=== PATIENT | male | born 1945 | race Caucasian/White ===

== ENCOUNTER → 2018-01-07 | Outpatient (CLI) | payer MEDICARE ==
[~2018-01-07] MED LIST: Azor 5-20 MG T1 EACH PO; OXYC1TAB11 PO
[2018-01-07 19:56] LABS: BASOPHILS ABSOLUTE AUTO 0.02 K/mm3 (0.00-0.23); BASOPHILS PERCENT AUTO 0 % (0-2); EOSINOPHILS ABSOLUTE AUTO 0.24 K/mm3 (0.00-0.68); EOSINOPHILS PERCENT AUTO 4 % (0-6); Hematocrit 39.9 % (37.0-53.0); Hemoglobin 13.3 g/dL (13.5-17.5); IMMATURE GRAN ABSOLUTE AUTO 0.03 K/mm3 (0.00-0.10); IMMATURE GRAN PERCENT AUTO 0 % (0-1); LYMPHOCYTES ABSOLUTE AUTO 2.21 K/mm3 (0.84-5.20); LYMPHOCYTES PERCENT AUTO 33 % (21-46); MONOCYTES PERCENT AUTO 7 % (4-13); Mean Corpuscular HGB 30.5 pg (26.0-34.0); Mean Corpuscular HGB Conc 33.3 g/dL (31.5-36.5); Mean Corpuscular Volume 92 fL (80-100); Mean Platelet Volume 10.4 fL (9.1-12.4); NEUTROPHILS PERCENT AUTO 56 % (41-73); Platelet Count 195 K/mm3 (150-400); RDW Standard Deviation 43.1 fL (35.1-46.3); Red Blood Cell Count 4.36 M/mm3 (4.30-5.90)
[2018-01-07 20:23] LABS: Alanine Aminotransfer (ALT/SGP 20 U/L (12-78); Albumin, Blood 4.3 g/dL (3.4-5.0); Albumin/Globulin Ratio 1.2 (0.8-1.8); Alk Phos 76 U/L (50-136); Anion Gap 5 mmol/L (6-16); Aspartate Aminotrans (AST/SGOT 16 U/L (12-37); Bilirubin, Total 0.3 mg/dL (0.1-1.0); Blood Urea Nitrogen 41 mg/dL (8-24); Bun/Creatinine Ratio 34.5 (12.0-20.0); CHOL/HDL RATIO 2.7; CO2, Blood 28 mmol/L (21-32); Calcium, Blood 9.4 mg/dL (8.5-10.1); Chloride, Blood 104 mmol/L (98-108); Cholesterol 190 mg/dL (50-200); Creatinine, Blood 1.19 mg/dL (0.60-1.20); Globulin, Blood 3.6 g/dL (2.2-4.0); Glomerular Filtration Rate >60 (60-); Glucose, Blood 93 mg/dL (70-99); HDL Cholesterol 70 mg/dL (>39); LDL/HDL RATIO 1.5; Low Density Lipoprotein Chol 104 mg/dL (0-110); Sodium, Blood 137 mmol/L (136-145); Total Protein, Blood 7.9 g/dL (6.4-8.2); Triglycerides 78 mg/dL (30-160); Very Low Density Lipoprot Chol 15 mg/dL (6-32)
== END | disposition home or self-care (01) ==
LOC: LAB 09:53 → LAB SHORT 09:53
PROVIDERS: Family Medicine
DX: E78.5 Hyperlipidemia, unspecified (principal); E55.9 Vitamin D deficiency, unspecified; I10 Essential (primary) hypertension
CPT/HCPCS: 80053; 80061; 82306; 85025

== ENCOUNTER → 2018-05-28 | Outpatient (CLI) | payer MEDICARE, OTHER ==
[2018-05-28 21:04] LABS: BASOPHILS ABSOLUTE AUTO 0.01 K/mm3 (0.00-0.23); BASOPHILS PERCENT AUTO 0 % (0-2); EOSINOPHILS ABSOLUTE AUTO 0.23 K/mm3 (0.00-0.68); EOSINOPHILS PERCENT AUTO 3 % (0-6); Hematocrit 41.8 % (37.0-53.0); Hemoglobin 13.5 g/dL (13.5-17.5); IMMATURE GRAN ABSOLUTE AUTO 0.02 K/mm3 (0.00-0.10); IMMATURE GRAN PERCENT AUTO 0 % (0-1); LYMPHOCYTES ABSOLUTE AUTO 2.18 K/mm3 (0.84-5.20); LYMPHOCYTES PERCENT AUTO 27 % (21-46); MONOCYTES ABSOLUTE AUTO 0.61 K/mm3 (0.16-1.47); MONOCYTES PERCENT AUTO 8 % (4-13); Mean Corpuscular HGB 29.9 pg (26.0-34.0); Mean Corpuscular HGB Conc 32.3 g/dL (31.5-36.5); Mean Corpuscular Volume 93 fL (80-100); Mean Platelet Volume 10.5 fL (9.1-12.4); NEUTROPHILS ABSOLUTE AUTO 5.11 K/mm3 (1.96-9.15); NEUTROPHILS PERCENT AUTO 63 % (41-73); Platelet Count 177 K/mm3 (150-400); RDW Coefficient Variation 12.7 % (11.7-14.2); RDW Standard Deviation 43.1 fL (35.1-46.3); Red Blood Cell Count 4.52 M/mm3 (4.30-5.90); White Blood Cell Count 8.16 K/mm3 (4.00-11.30)
[2018-05-29 08:55] LABS: Anion Gap 6 mmol/L (6-16); Blood Urea Nitrogen 32 mg/dL (8-24); Bun/Creatinine Ratio 27.1 (12.0-20.0); CO2, Blood 29 mmol/L (21-32); Calcium, Blood 9.4 mg/dL (8.5-10.1); Chloride, Blood 102 mmol/L (98-108); Creatinine, Blood 1.18 mg/dL (0.60-1.20); Glomerular Filtration Rate >60 (60-); Glucose, Blood 101 mg/dL (70-99); Potassium, Blood 4.6 mmol/L (3.5-5.5); Sodium, Blood 137 mmol/L (136-145)
[2018-05-29 08:56] LABS: Alanine Aminotransfer (ALT/SGP 24 U/L (12-78); Albumin, Blood 4.4 g/dL (3.4-5.0); Albumin/Globulin Ratio 1.2 (0.8-1.8); Alk Phos 80 U/L (50-136); Aspartate Aminotrans (AST/SGOT 18 U/L (12-37); Bilirubin, Total 0.6 mg/dL (0.1-1.0); Globulin, Blood 3.7 g/dL (2.2-4.0); Total Protein, Blood 8.1 g/dL (6.4-8.2)
== END | disposition home or self-care (01) ==
LOC: LAB SHORT 15:52 → LAB 15:52
PROVIDERS: Family Medicine
DX: E78.5 Hyperlipidemia, unspecified (principal); I10 Essential (primary) hypertension
CPT/HCPCS: 80053; 85025; 86430

== ENCOUNTER 2020-02-07 13:15 | Emergency (ER) | payer MEDICARE, OTHER ==
[~2020-02-07] VITALS: Ht 177.8 cm; Wt 81.7 kg
[2020-02-07] MEDS ORDERED: Norco 10-325 T1 EACH PO (15:31)
== END 2020-02-07 18:33 | disposition home or self-care (01) ==
LOC: ER 13:15
DX: S16.1XXA Strain of muscle, fascia and tendon at neck level, initial encounter (principal); S00.03XA Contusion of scalp, initial encounter; I10 Essential (primary) hypertension; Z88.5 Allergy status to narcotic agent; W22.8XXA Striking against or struck by other objects, initial encounter
CPT/HCPCS: 70450; 72125; 73030; 73562-LT; 73562-RT; 96374; 99284-25; J3010

== ENCOUNTER 2020-04-01 12:15 | Emergency (ER) | payer MEDICARE, OTHER ==
[~2020-04-01] VITALS: Ht 172.7 cm; Wt 79.4 kg
[~2020-04-01 12:15] MED LIST changes: +Norco 10-325 T1 EACH PO
[2020-04-01 12:41] LABS: BASOPHILS ABSOLUTE AUTO 0.01 K/mm3 (0.00-0.23); BASOPHILS PERCENT AUTO 0 % (0-2); EOSINOPHILS ABSOLUTE AUTO 0.12 K/mm3 (0.00-0.68); EOSINOPHILS PERCENT AUTO 2 % (0-6); Hematocrit 37.4 % (37.0-53.0); IMMATURE GRAN ABSOLUTE AUTO 0.02 K/mm3 (0.00-0.10); IMMATURE GRAN PERCENT AUTO 0 % (0-1); LYMPHOCYTES ABSOLUTE AUTO 1.73 K/mm3 (0.84-5.20); LYMPHOCYTES PERCENT AUTO 32 % (21-46); MONOCYTES ABSOLUTE AUTO 0.39 K/mm3 (0.16-1.47); MONOCYTES PERCENT AUTO 7 % (4-13); Mean Corpuscular HGB 30.1 pg (26.0-34.0); Mean Corpuscular HGB Conc 32.1 g/dL (31.5-36.5); Mean Corpuscular Volume 94 fL (80-100); Mean Platelet Volume 9.4 fL (9.1-12.4); NEUTROPHILS PERCENT AUTO 59 % (41-73); Platelet Count 184 K/mm3 (150-400); RDW Coefficient Variation 13.1 % (11.7-14.2); RDW Standard Deviation 45.1 fL (35.1-46.3); Red Blood Cell Count 3.99 M/mm3 (4.30-5.90); White Blood Cell Count 5.47 K/mm3 (4.00-11.30)
[2020-04-01 13:06] LABS: Alanine Aminotransfer (ALT/SGP 17 U/L (12-78); Albumin, Blood 3.8 g/dL (3.4-5.0); Albumin/Globulin Ratio 1.1 (0.8-1.8); Alk Phos 64 U/L (50-136); Anion Gap 2 mmol/L (6-16); Aspartate Aminotrans (AST/SGOT 11 U/L (12-37); Bilirubin, Total 0.6 mg/dL (0.1-1.0); Blood Urea Nitrogen 22 mg/dL (8-24); Bun/Creatinine Ratio 17.6 (12.0-20.0); CO2, Blood 31 mmol/L (21-32); Calcium, Blood 9.3 mg/dL (8.5-10.1); Chloride, Blood 106 mmol/L (98-108); Creatinine, Blood 1.25 mg/dL (0.60-1.20); Globulin, Blood 3.4 g/dL (2.2-4.0); Glomerular Filtration Rate 60 (60-); Glucose, Blood 95 mg/dL (70-99); Potassium, Blood 4.1 mmol/L (3.5-5.5); Sodium, Blood 139 mmol/L (136-145); Total Protein, Blood 7.2 g/dL (6.4-8.2); Troponin I <0.015 ng/mL (0.000-0.040)
[2020-04-01] MEDS ORDERED: CARVEDILOL3.125 MG PO (13:13)
[2020-04-01] MEDS ORDERED: TRIDERM28.4 GM TOP (13:14)
[2020-04-01] MEDS ORDERED: TADALAFIL5 M1 PO (13:14)
[2020-04-01] MEDS ORDERED: LOSA25 PO (13:14)
[2020-04-01] MEDS ORDERED: TRAZ50 PO (16:43)
[2020-04-01] MEDS ORDERED: DEXA4 PO (16:43)
[2020-04-01] MEDS ORDERED: OXYC10TA19 PO (16:43)
== END 2020-04-01 18:41 | disposition home or self-care (01) ==
LOC: ER 12:15
PROVIDERS: Emergency Medicine
DX: M48.02 Spinal stenosis, cervical region (principal); G89.29 Other chronic pain; Z88.5 Allergy status to narcotic agent; Z79.899 Other long term (current) drug therapy; I10 Essential (primary) hypertension
CPT/HCPCS: 71046; 80053; 83880; 84484; 85025; 93005; 93010; 96361; 96374; 96375; 96376; 99285-25; J2405; J2930; J3010; J7030; U0002

== ENCOUNTER 2020-05-03 05:52 | Day surgery (SDC) | payer MEDICARE, OTHER ==
[~2020-05-03] VITALS: Ht 167.6 cm; Wt 80.0 kg
[~2020-05-03 05:52] MED LIST changes: +ATOR20 PO; +Aspir 8181 MG PO; +CARVEDILOL3.125 MG PO; +DEXA4 PO; +DIAZ10 PO; +FURO40 PO; +LASIX40 MG PO; +LOSA25 PO; +OXYC10TA19 PO; +TADALAFIL5 M1 PO; +TRAZ50 PO; +TRIDERM28.4 GM TOP
--- NOTE | 2020-05-03 09:32 | NUR ---
TYLENOL#3 2 PO GIVEN FOR 910 LEFT HIP PAIN
--- NOTE | 2020-05-03 10:13 | NUR ---
OXYCODONE 10 MG PO GIVEN FOR 9/10 LEFT HIP PAIN.
--- NOTE | 2020-05-03 12:30 | NUR ---
AMBULATED IN HELLEN. TOLERATED FAIR. DRESSING HAS SMALL AMOUNT OF SCAN BLOOD AT SITE.
--- NOTE | 2020-05-03 12:59 | NUR ---
DISCHARGE INSTRUCTIONS GIVEN WITH VERBAL AND WRITTEN UNDERSTANDING. [facility]GE INSTRUCTIONS WELL.
--- NOTE | 2020-05-03 13:29 | NUR ---
IV REMOVED INTACT. 2X2 MANUAL PRESSURE AND COBAN APPLIED. DRESSED FOR DISCHARGE. [facility] CALLED AT 12:50. INSTRUCTIONS WITH PATIENT.
[2020-05-16] MEDS ORDERED: FURO40 PO (06:41)
[2020-05-16] MEDS ORDERED: LOSA25 PO (06:42)
== END 2020-05-03 13:30 | disposition home or self-care (01) ==
LOC: MHTC 05:52
PROC: B201YZZ Plain Radiography of Multiple Coronary Arteries using Other Contrast (ICD-10-PCS; principal; 2020-05-03)
PROC: 4A023N7 Measurement of Cardiac Sampling and Pressure, Left Heart, Percutaneous Approach (ICD-10-PCS; principal; 2020-05-03)
DX: I25.10 Atherosclerotic heart disease of native coronary artery without angina pectoris (principal); Z88.5 Allergy status to narcotic agent; Z87.891 Personal history of nicotine dependence; I10 Essential (primary) hypertension; E78.5 Hyperlipidemia, unspecified; F32.9 Major depressive disorder, single episode, unspecified; Z79.899 Other long term (current) drug therapy; Z79.82 Long term (current) use of aspirin; Z88.6 Allergy status to analgesic agent
CPT/HCPCS: 93458; 99152; 99153; C1769; C1894; J0690; J1644; J2250; J3010; J7030; J7040; Q9967

== ENCOUNTER 2020-05-17 03:19 | Emergency (ER) | payer MEDICARE, OTHER ==
[~2020-05-17] VITALS: Ht 180.3 cm; Wt 79.4 kg
[2020-05-17 04:05] LABS: Source, Urine Catheter
[2020-05-17 04:11] LABS: Appearance, Urine Clear (Clear); Bilirubin, Urine Neg (Neg); Blood, Urine 3+ (Neg); Color, Urine Amber (P-Yellow); Glucose Qualitative, Urine Neg (Neg); Ketones, Urine 2+ (Neg); Leukocyte Esterase, Urine Neg (Neg); Nitrite, Urine Neg (Neg); Protein, Urine Neg (Neg); Urobilinogen, Urine 1+ (Normal)
[2020-05-17 04:51] LABS: Bacteria Few /hpf; Squamous Epithelial Cells Rare /hpf (Few); White Blood Cells, Urine 0-2 /hpf (0-5)
== END 2020-05-17 05:32 | disposition home or self-care (01) ==
LOC: ER 03:19
PROVIDERS: Emergency Medicine
DX: R35.0 Frequency of micturition (principal); R35.8 Other polyuria; R60.0 Localized edema; Z88.5 Allergy status to narcotic agent; Z88.8 Allergy status to other drugs, medicaments and biological substances; Z79.899 Other long term (current) drug therapy; Z79.82 Long term (current) use of aspirin; I11.0 Hypertensive heart disease with heart failure; I50.9 Heart failure, unspecified; G47.30 Sleep apnea, unspecified
CPT/HCPCS: 51702; 81001; 99283-25